=== PATIENT | female | born 1990 | race Caucasian/White ===

== ENCOUNTER → 2020-05-01 | Outpatient (CLI) | payer SELFPAY ==
--- NOTE | 2020-05-01 15:07 | US ---
EXAMINATION TYPE: Transabdominal DATE OF EXAM: 05/01/2020 12:51 PM COMPARISON: NONE CLINICAL HISTORY: O2.00 threatened ,R10.2 pelv/perineal pain. Spotting and cramping EXAM PERFORMED: Transabdominal (TA) EXAM MEASUREMENTS: GESTATIONAL AGE / DATING Physician Established: Not yet established Dates by LMP: 03/26/2020 (5 weeks/1 days) EDC: 12/31/2020 Dates by First Scan: No previous this is first scan Dates by Current Scan for: No IUP seen at this t karey MATERNAL ANATOMY Uterus: 11.9 x 5.5 x 6.7 cm Right Ovary: 2.7 x 1.8 x 2.2 cm Left Ovary: 2.0 x 2.4 x 2.1 cm Post CDS / Adnexa: wnl Presence of free fluid: no Presence of corpus luteal cyst: yes right Presence of subchorionic bleed: no GESTATION / SURVEY MSD: .9 cm too small to date. IUP: No IUP seen at this time Beta HcG (if available): Not available at this time Small gestational sac seen no pole seen at this time. IMPRESSION: 1. Small intrauterine hypodensity could be early gestational sac. Date by current measurements. Follo w-up ultrasound and correlation with beta-hCG is recommended.
== END | disposition home or self-care (01) ==
LOC: RADUSWWP 12:37
PROVIDERS: ATTEND Family Medicine
DX: O20.0 Threatened abortion (principal); R93.89 Abnormal findings on diagnostic imaging of other specified body structures
CPT/HCPCS: 76801